=== PATIENT | female | born 1995 | race American Indian/Alaskan Native ===

== ENCOUNTER 2018-12-01 01:10 | Emergency (ER) | payer BC ==
[2018-12-01] MEDS ORDERED: Mupirocin Crm 30 GM Tube TOP STA (01:33)
--- NOTE | 2018-12-01 01:43 | EDM.PDOC ---
ED HPI GENERAL MEDICAL PROBLEM - General Chief Complaint: Skin Complaint Stated Complaint: POISON YAZMIN Time Seen by Provider: 12/01/18 01:39 Source of Information: Reports: Patient - History of Present Illness INITIAL COMMENTS - FREE TEXT/NARRATIVE: HISTORY AND PHYSICAL: History of present illness: []Patient presents with complaint of "poison yazmin" She is been seen in [facility] as well as [facility] treated with steroid injection however it appears she has cellulitis or staph infection stemming from the left axilla extending down her arm, she complains of both itching and pain some of the lesions are consistent with poison yazmin however she has small pimple lesions which I can express exudate that did take a couple of cultures from 2 different areas, some areas appear more like leach more like scalded skin /staph infection She has a sister with similar symptoms She denies any contact with plants in general he is at home or at work neither are in the outdoors Review of systems: As per history of present illness and below otherwise all systems reviewed and negative. Past medical history: As per history of present illness and as reviewed below otherwise noncontributory. Surgical history: As per history of present illness and as reviewed below otherwise noncontributory. Social history: No reported history of drug or alcohol abuse. Family history: As per history of present illness and as reviewed below otherwise noncontributory. Physical exam: HEENT: Atraumatic, normocephalic, pupils reactive, negative for conjunctival pallor or scleral icterus, mucous membranes moist, throat clear, neck supple, nontender, trachea midline. Lungs: Clear to auscultation, breath sounds equal bilaterally, chest nontender. Heart: S1S2, regular, negative for clicks, rubs, or JVD. Abdomen: Soft, nondistended, nontender. Negative for masses or hepatosplenomegaly. Negative for costovertebral tenderness. Pelvis: Stable nontender. Genitourinary: Deferred. Rectal: Deferred. Extremities: Atraumatic, negative for cords or calf pain. Neurovascular unremarkable. Neuro: Awake, alert, oriented. Cranial nerves II through XII unremarkable. Cerebellum unremarkable. Motor and sensory unremarkable throughout. Exam nonfocal. Skin as per history of present illness Diagnostics: [Clinical Wound cultures taken ] Therapeutics: bacroban Bactrim double strength Prednisone followup with primary care in one week for recheck ] Impression: [ cellulitis ] Definitive disposition and diagnosis as appropriate pending reevaluation and review of above. - Related Data Allergies Allergy/AdvReac Type Severity Reaction Status Date / Time No Known Allergies Allergy Verified 12/01/18 01:28 Home Meds: Home Meds . [No Known Home Meds] 08/01/17 [History] Past Medical History - Past Health History Medical/Surgical History: Denies Medical/Surgical History HEENT History: Reports: None Cardiovascular History: Reports: None Respiratory History: Reports: None Gastrointestinal History: Reports: None Genitourinary History: Reports: None FLOOR SCRUBBER History: Reports: None Musculoskeletal History: Reports: None Neurological History: Reports: Concussion, Head Trauma Psychiatric History: Reports: Addiction, Depression Endocrine/Metabolic History: Reports: None Hematologic History: Reports: None Immunologic History: Reports: None Oncologic (Cancer) History: Reports: None Dermatologic History: Reports: Cellulitis - Infectious Disease History Infectious Disease History: Reports: None - Past Surgical History Head Surgeries/Procedures: Reports: None Social & Family History - Family History Family Medical History: Noncontributory OBGYN: Reports: Neurological: Reports: MS, Other (See Below) Other Neurological Family History: mother has MS Endocrine/Metabolic: Reports: Diabetes, type II - Tobacco Use Smoking Status *Q: Never Smoker Second Hand Smoke Exposure: No - Caffeine Use Caffeine Use: Reports: Coffee, Soda - Recreational Drug Use Recreational Drug Use: No ED ROS GENERAL - Review of Systems Review Of Systems: See Below ED EXAM, SKIN/RASH Exam: See Below Course - Vital Signs Last Recorded V/S: Last Vital Signs Temp 97.2 F 12/01/18 01:13 Pulse 90 12/01/18 01:13 Resp 16 12/01/18 01:13 BP 120/74 12/01/18 01:13 Pulse Ox 95 12/01/18 01:13 - Orders/Labs/Meds Meds: Medications Discontinued Medications Generic Name Dose Route Start Last Admin Trade Name Freq PRN Reason Stop Dose Admin Mupirocin 1 gm 12/01/18 01:33 Bactroban Crm TOP 12/01/18 01:34 STAT STA Departure - Departure Time of Disposition: 01:42 Disposition: Home, Self-Care 01 Condition: Good Clinical Impression: Cellulitis - Discharge Information Referrals: PCP,None [Primary Care Provider] - Additional Instructions: Medication as prescribed Return if symptoms persist or worsen Follow-up with primary care in one week for recheck, ER referral for follow-up in one week [facility] - [facility] [address] [place] [id number] The following information is given to patients seen in the emergency department who are being discharged to home. This information is to outline your options for follow-up care. We provide all patients seen in our emergency department with a follow-up referral. The need for follow-up, as well as the timing and circumstances, are variable depending upon the specifics of your emergency department visit. If you don't have a primary care physician on staff, we will provide you with a referral. We always advise you to contact your personal physician following an emergency department visit to inform them of the circumstance of the visit and for follow-up with them and/or the need for any referrals to a consulting specialist. The emergency department will also refer you to a specialist when appropriate. This referral assures that you have the opportunity for follow-up care with a specialist. All of these measure are taken in an effort to provide you with optimal care, which includes your follow-up. Under all circumstances we always encourage you to contact your private physician who remains a resource for coordinating your care. When calling for follow-up care, please make the office aware that this follow-up is from your recent emergency room visit. If for any reason you are refused follow-up, please contact the [facility] emergency department at and asked to speak to the emergency department charge nurse.
[2018-12-01] MEDS ORDERED: predniSONE 20 MG Tab PO ONE (01:45)
[2018-12-01] MEDS ORDERED: Sulfamethoxazole/Trimethoprim 800-160 MG Tab PO ONE (01:45)
[2018-12-01] MEDS ORDERED: Mupirocin Oint 22 GM Tube TOP ONE ×2 (01:50→01:51)
[2018-12-01 02:21] VITALS: BP 110/68; PULSE 75
== END 2018-12-01 02:17 | disposition home or self-care (01) ==
LOC: MW.ED 01:10
DX: L03.112 Cellulitis of left axilla (principal); L03.114 Cellulitis of left upper limb
CPT/HCPCS: 87070; 99283; A9270; 87077; 87186